=== PATIENT | female | born 1990 | race Caucasian/White ===

== ENCOUNTER 2017-02-15 05:21 | Day surgery (SDC) | payer MEDICAID, BC ==
[2017-02-13 11:02] LABS: BASOPHILS 0.1 % (0-2); HEMATOCRIT 38.5 % (36.0-48.0); HEMOGLOBIN 12.9 g/dL (12-16); MCH 30.4 pg (26.0-34.0); MCHC 33.5 g/dL (31.0-37.0); MCV 90.6 fL (80.0-100.0); MEAN PLATELET VOLUME 11.6 fL (7.4-10.4); MONOCYTES 8.2 % (2-11); NEUTROPHILS 63.7 % (40-80); RBC 4.25 10x6/uL (4.00-5.40); RDW 12.7 % (11.5-14.5); WBC 7.2 10x3/uL (4.8-10.8)
[2017-02-13 11:07] LABS: PLATELET COUNT 293 10x3/uL (130-400)
[2017-02-13 11:12] LABS: CALC OSMOLALITY 274 mosm/kg (275-300); CALCIUM 9.2 mg/dL (8.5-10.1); CARBON DIOXIDE 26.6 mmol/L (21.0-32.0); CHLORIDE - SERUM 103 mmol/L (98-107); CREATININE - SERUM 0.6 mg/dL (0.6-1.3); GLUCOSE 97 mg/dL (74-106); POTASSIUM - SERUM 4.2 mmol/L (3.5-5.1); SODIUM 138 mmol/L (136-145); UREA NITROGEN 9 mg/dL (7-18); eGFR NON AFRICAN AMERICAN > 90 mL/min (90-120)
[2017-02-15 05:50] LABS: HCG URINE NEGATIVE (NEGATIVE)
[2017-02-15 06:01] VITALS: BP 112/71; BMI 29.9
--- NOTE | 2017-04-20 16:58 | OP ---
PATIENT NAME: LUI CHACON MEDICAL RECORD: [id number] :90 LOCATION:[facility] ADMISSION DATE: SURGEON: LOW ALBARRAN MD DATE OF OPERATION: 02/15/2017 The patient presented on 02/15/2017 for hysteroscopic removal of intrauterine device. PROCEDURE IN DETAIL: The patient was taken to the operating room where general anesthesia was achieved without difficulty. The patient was then prepped and draped in normal sterile fashion in the dorsal lithotomy position in the [facility]. At this point, the bladder was drained of approximately 50 cc of straw-colored urine. A Graves speculum was placed into the vagina and the cervix was identified and grasped on its anterior lip with a single tooth tenaculum. The IUD strings were not present. At this point, a 3-mm hysteroscope was then used to enter the cervix. Under direct visualization, the IUD strings were identified and the lower uterine segment grasped with a hysteroscopic grasper and then the entire hysteroscope was removed with the IUD removed intact without difficulty. The tenaculum was then removed. The patient was transferred to postanesthesia recovery stable without incident. TRANSINT:[id number] Voice Confirmation ID: [id number] DOCUMENT ID: [id number] LOW ALBARRAN MD at 1658 CC: [id number] DICTATION DATE: 04/01/17 1442 QUALITY ASSURANCE ADVISOR: 04/01/17 1538 [facility] 02/15/[address] [address]
== END 2017-02-15 09:42 | disposition home or self-care (01) ==
LOC: D.OPS 05:21
PROVIDERS: Obstetrics & Gynecology
DX: N92.6 Irregular menstruation, unspecified (principal); Z01.812 Encounter for preprocedural laboratory examination

== ENCOUNTER → 2017-11-09 12:37 | Outpatient (CLI) | payer BC, MEDICAID | END | disposition home or self-care (01) | LOC: D.LDO 12:37 | DX: O24.419 Gestational diabetes mellitus in pregnancy, unspecified control (principal); Z3A.31 31 weeks gestation of pregnancy ==

== ENCOUNTER → 2017-11-13 10:50 | Outpatient (CLI) | payer BC, MEDICAID | END | disposition home or self-care (01) | LOC: D.LDO 10:50 | DX: O24.913 Unspecified diabetes mellitus in pregnancy, third trimester (principal); Z3A.31 31 weeks gestation of pregnancy ==

== ENCOUNTER → 2017-11-16 12:38 | Outpatient (CLI) | payer BC | END | disposition home or self-care (01) | LOC: D.LDO 12:38 | DX: O26.899 Other specified pregnancy related conditions, unspecified trimester (principal); Z3A.00 Weeks of gestation of pregnancy not specified ==

== ENCOUNTER → 2017-11-20 14:34 | Outpatient (CLI) | payer BC | END | disposition home or self-care (01) | LOC: D.LDO 14:34 | DX: O24.419 Gestational diabetes mellitus in pregnancy, unspecified control (principal); Z3A.32 32 weeks gestation of pregnancy ==

== ENCOUNTER → 2017-11-23 12:14 | Outpatient (CLI) | payer BC | END | disposition home or self-care (01) | LOC: D.LDO 12:14 | DX: O24.913 Unspecified diabetes mellitus in pregnancy, third trimester (principal); Z3A.33 33 weeks gestation of pregnancy ==

== ENCOUNTER → 2017-11-27 14:06 | Outpatient (CLI) | payer BC | END | disposition home or self-care (01) | LOC: D.LDO 14:06 | DX: O24.419 Gestational diabetes mellitus in pregnancy, unspecified control (principal); Z3A.33 33 weeks gestation of pregnancy ==

== ENCOUNTER → 2017-11-30 09:42 | Outpatient (CLI) | payer BC | END | disposition home or self-care (01) | LOC: D.LDO 09:42 | DX: O24.913 Unspecified diabetes mellitus in pregnancy, third trimester (principal); Z3A.34 34 weeks gestation of pregnancy ==

== ENCOUNTER → 2017-12-04 12:43 | Outpatient (CLI) | payer BC | END | disposition home or self-care (01) | LOC: D.LDO 12:43 | DX: O24.419 Gestational diabetes mellitus in pregnancy, unspecified control (principal); Z3A.34 34 weeks gestation of pregnancy ==

== ENCOUNTER → 2017-12-07 13:57 | Outpatient (CLI) | payer BC | END | disposition home or self-care (01) | LOC: D.LDO 13:57 | DX: O24.419 Gestational diabetes mellitus in pregnancy, unspecified control (principal); Z3A.35 35 weeks gestation of pregnancy ==

== ENCOUNTER → 2017-12-11 11:43 | Outpatient (CLI) | payer BC | END | disposition home or self-care (01) | LOC: D.LDO 11:43 | DX: O24.913 Unspecified diabetes mellitus in pregnancy, third trimester (principal); Z3A.35 35 weeks gestation of pregnancy ==

== ENCOUNTER → 2017-12-14 11:50 | Outpatient (CLI) | payer BC | END | disposition home or self-care (01) | LOC: D.LDO 11:50 | DX: O24.913 Unspecified diabetes mellitus in pregnancy, third trimester (principal); Z3A.36 36 weeks gestation of pregnancy ==

== ENCOUNTER → 2017-12-18 13:31 | Outpatient (CLI) | payer BC | END | disposition home or self-care (01) | LOC: D.LDO 13:31 | DX: O24.419 Gestational diabetes mellitus in pregnancy, unspecified control (principal); Z3A.36 36 weeks gestation of pregnancy ==

== ENCOUNTER → 2017-12-21 12:34 | Outpatient (CLI) | payer BC | END | disposition home or self-care (01) | LOC: D.LDO 12:34 | DX: O24.419 Gestational diabetes mellitus in pregnancy, unspecified control (principal); Z3A.37 37 weeks gestation of pregnancy ==

== ENCOUNTER 2017-12-24 04:37 | Inpatient (IN) | payer BC ==
[2017-12-24] VITALS (11 sets, daily range): BP systolic 111–132; BP diastolic 69–78; BMI 33.3
[~2017-12-24] VITALS: Ht 157.5 cm; Wt 82.6 kg
--- NOTE | ~2017-12-24 | DS ---
PATIENT:LUI CHACON :89 MEDICAL RECORD: [id number] DISCHARGE SUMMARY ADMISSION DATE: 12/24/17 DISCHARGE DATE: 12/26/17 HISTORY: The patient was admitted on 12/24/2017. A 27-year-old at 37 weeks and 5 days, admitted in labor, with history of previous section times 2. The patient noted to be A positive, group B strep negative, rubella immune. The patient with past medical history significant for A2 gestational diabetes and migraine headaches as well as depression and ADD. PAST SURGICAL HISTORY: The patient had surgical history significant for times 2 and cholecystectomy. ALLERGIES: THE PATIENT REPORTED AN ALLERGY TO MORPHINE. FAMILY HISTORY: Significant for a parent with cardiovascular disease and diabetes and a sibling with diabetes. SOCIAL HISTORY: The patient reported social history significant for being a former tobacco user. PHYSICAL EXAMINATION: VITAL SIGNS: On initial assessment, vital signs were stable. The patient was afebrile and normotensive. LUNGS: Clear to auscultation. CARDIOVASCULAR: Regular rate and rhythm. PELVIC: Uterus was appropriately sized and nontender. The patient was noted to be jaci on toco every 2-3 minutes. EXTREMITIES: Lower extremities were free of Homans' sign, erythema, or swelling. Admit hemoglobin was noted to be 11.4 with platelet count of 204. ASSESSMENT AND PLAN: At that time; 1. Term intrauterine at 37 weeks and 5 days. 2. Labor. 3. History of previous times 2. 4. History of A2 gestational diabetes. 5. Migraine. 6. Depression. Plan at that time was for and tubal ligation. Risks and benefits were explained. The patient voiced understanding and consented. wellbeing was reassuring with category 1 tracing. Operative report is as dictated. The patient did well overnight on postop day #0, tolerating clear liquid diet. The patient was on IV fluid, Dilaudid ATTENDANCE CLERK, and Toradol IV. Moyer catheter was in overnight, draining freely with adequate urine output. SCDs were on and functioning appropriately. On the morning of postop day #1, the patient continued to improve. Vital signs were stable. The patient was normotensive and afebrile. Hemoglobin was found to be stable. Incision was clean, dry, and intact. Uterus was infraumbilical and appropriately tender. The patient was advanced to general diet and p.o. pain meds. Moyer catheter was discontinued and ambulation begun. The patient continued to do well overnight on postop day #1. On the morning of postop day #2, the patient continued to do well. Vital signs remained stable. The patient was afebrile and normotensive. Incision was DISCHARGE SUMMARY REPORT [id number] OSWALDOLUI POSADAS clean, dry, and intact. Uterus was infraumbilical and appropriately tender. The patient with minimal lochia, voiding freely and ambulating, tolerating p.o. pain meds and general diet. The patient was discharged on postop day #2 with instructions to follow up for staple removal next week. TRANSINT:[id number] Voice Confirmation ID: [id number] DOCUMENT ID: [id number] LOW ALBARRAN MD at 1754 CC: [id number] DICTATION DATE: 01/27/181741 LIFESTYLE DIRECTOR: 01/27/181956 DIS IN 12/26/17 [facility] [address] [place] [address]
--- NOTE | ~2017-12-24 | OP ---
PATIENT NAME: LUI CHACON MEDICAL RECORD: [id number] :90 LOCATION:[facility] D.1274 ADMISSION DATE:12/24/17 SURGEON: IVAN RUIZ MD DATE OF OPERATION: 12/24/2017 PREOPERATIVE DIAGNOSES: 1. Labor at 37 weeks. 2. History of times 2. PROCEDURES: Repeat low transverse section and bilateral distal salpingectomy. SURGEON: Ivan Ruiz ESTIMATED BLOOD LOSS: 1000 cc. ANESTHESIA: Regional. INTRAVENOUS FLUIDS: Per anesthesia record. SPECIMENS: Placenta and cord for gases as well as distal fallopian tube segments. FINDINGS: Viable female , Apgars 9 at 1 and 9 at 5. Placenta delivered manually intact, 3-vessel cord noted. Grossly normal-appearing adnexa bilaterally. COMPLICATIONS: None apparent. PROCEDURE: The patient was taken to the operating room, where regional anesthesia was achieved without any difficulty. The patient was prepped and draped in normal sterile fashion in the dorsal supine position. A Moyer catheter had been placed and was draining freely. SCDs were on and functioning normally. Following prep and drape, repeat Pfannenstiel skin incision was made and extended downward to the underlying subcutaneous fat to the level of the fascia. Fascia was then nicked in the midline and extended bilaterally using the Ramirez scissors. Fascial incision was then grasped superiorly and inferiorly at superior aspect and inferior aspect of the incision, and sharply dissected from the underlying rectus muscle using Bovie cautery and Ramirez scissors. The rectus muscles were then bluntly in the midline and the peritoneum was entered sharply at the superior aspect of the incision. Several adhesions involving the peritoneum and the uterus were carefully dissected and bladder blade was placed into the pelvis and a bladder flap was created by excising the anterior leaf of the broad ligament across the lower uterine segment. A low transverse incision was made and extended superiorly and inferiorly using the Pelosi method. The 's head was delivered atraumatically. The infant was bulb suctioned upon delivery. Cord was clamped times 2, cut, and handed to the awaiting nursery team. Cord was then obtained for gases. Placenta was then manually removed and uterus was exteriorized, cleared of all clots and debris, and vigorously massaged until good tone was noted. Attention was then turned to the uterine incision, which was repaired with #0 Vicryl in a running locked fashion times 2 with good hemostasis noted. At this point, attention was then turned to the fallopian tubes, where a defect was made on the midportion of the mesosalpinx. Mesosalpinx was then clamped with a Angely clamp and a Angely clamp was placed across the proximal end of the fallopian tube. The tubal OPERATIVE REPORT [id number] LUI CHACON segment was then removed and the mesosalpinx and tubal stump were then oversewn with 2-0 Vicryl times 2. This was performed bilaterally and good hemostasis was noted bilaterally. Posterior cul-de-sac was then thoroughly irrigated and uterus was replaced into the pelvis. Anterior cul-de-sac was then thoroughly irrigated and the uterine incision was checked for hemostasis. Counts were correct times 2 for sponges, needles, and instruments. The fascia was repaired with #0 loop PDS times 1 and the skin was repaired with luz elena. The patient tolerated procedure well and was transferred to postanesthesia recovery stable without incident. TRANSINT:[id number] Voice Confirmation ID: [id number] DOCUMENT ID: [id number] IVAN RUIZ MD at 1754 CC: [id number] DICTATION DATE: 01/27/18 173 BRAND RECORDER: 01/27/18 1843 DIS IN 12/26/17 [facility] [address] [place] [address]
[2017-12-24 05:12] LABS: APPEARANCE CLOUDY (CLEAR); COLOR YELLOW (YELLOW); GLUCOSE NEGATIVE (NEGATIVE); NITRITE NEGATIVE (NEGATIVE); PROTEIN NEGATIVE (NEGATIVE); SPECIFIC GRAVITY 1.015 (1.005-1.020)
[2017-12-24 05:13] LABS: BILIRUBIN NEGATIVE (NEGATIVE); KETONE NEGATIVE (NEGATIVE); RED CELLS - URINE >50 /hpf (0-5); UROBILINOGEN NORMAL (NORMAL); WHITE CELLS - URINE 0-5 /hpf (0-5)
[2017-12-24 05:20] LABS: BACTERIA NONE SEEN /hpf (NONE SEEN); EPITHELIAL CELLS OCC /hpf (0-5)
[2017-12-24 09:30] LABS: HEMATOCRIT 35.1 % (36.0-48.0); HEMOGLOBIN 11.4 g/dL (12-16); MCH 27.3 pg (26.0-34.0); MCHC 32.5 g/dL (31.0-37.0); MEAN PLATELET VOLUME 12.8 fL (7.4-10.4); RBC 4.18 10x6/uL (4.00-5.40); RDW 13.4 % (11.5-14.5)
[2017-12-24 16:29] LABS: BASOPHILS 0.1 % (0-2); EOSINOPHILS 0.1 % (0-7); HEMATOCRIT 29.2 % (36.0-48.0); HEMOGLOBIN 9.2 g/dL (12-16); IMMATURE GRANULOCYTES 0.2 % (0-5); LYMPHOCYTES 10.9 % (15-50); MCH 26.6 pg (26.0-34.0); MCHC 31.5 g/dL (31.0-37.0); MCV 84.4 fL (80.0-100.0); MEAN PLATELET VOLUME 12.9 fL (7.4-10.4); MONOCYTES 8.5 % (2-11); NEUTROPHILS 80.2 % (40-80); PLATELET COUNT 172 10x3/uL (130-400); RBC 3.46 10x6/uL (4.00-5.40); RDW 13.3 % (11.5-14.5); WBC 12.3 10x3/uL (4.8-10.8)
[2017-12-25] VITALS (23 sets, daily range): BP systolic 104–123; BP diastolic 58–72; Ht 157.5 cm; Wt 82.6 kg
[2017-12-25 06:13] LABS: RAPID PLASMA REAGIN Non Reactive (Non Reactive)
[2017-12-25 07:07] LABS: BASOPHILS 0.1 % (0-2); EOSINOPHILS 0.2 % (0-7); HEMATOCRIT 28.5 % (36.0-48.0); HEMOGLOBIN 8.9 g/dL (12-16); IMMATURE GRANULOCYTES 0.1 % (0-5); LYMPHOCYTES 9.5 % (15-50); MCH 26.3 pg (26.0-34.0); MCHC 31.2 g/dL (31.0-37.0); MCV 84.3 fL (80.0-100.0); MEAN PLATELET VOLUME 11.5 fL (7.4-10.4); NEUTROPHILS 81.1 % (40-80); PLATELET COUNT 150 10x3/uL (130-400); RBC 3.38 10x6/uL (4.00-5.40); RDW 13.6 % (11.5-14.5); WBC 9.8 10x3/uL (4.8-10.8)
[2017-12-26 05:09] VITALS: BP 125/77
[2017-12-26 09:23] VITALS: BP 122/65
== END 2017-12-26 12:15 | disposition home or self-care (01) | DRG 766 ==
LOC: D.LDO 04:37 → D.LD 08:53
PROVIDERS: Obstetrics & Gynecology
PROC: 10D00Z1 Extraction of Products of Conception, Low, Open Approach (ICD-10-PCS; principal; 2017-12-24 09:30)
PROC: 0UB70ZZ Excision of Bilateral Fallopian Tubes, Open Approach (ICD-10-PCS; 2017-12-24 09:30)
DX: O99.214 Obesity complicating childbirth (principal); O24.429 Gestational diabetes mellitus in childbirth, unspecified control; Z3A.37 37 weeks gestation of pregnancy; Z37.0 Single live birth; Z30.2 Encounter for sterilization; Z30.09 Encounter for other general counseling and advice on contraception; O34.211 Maternal care for low transverse scar from previous cesarean delivery; Z87.891 Personal history of nicotine dependence